=== PATIENT | female | born 1990 | race Caucasian/White ===

== ENCOUNTER 2018-08-21 16:37 | Emergency (ER) | payer OTHER, SELFPAY ==
[2018-08-21 16:43] VITALS: BP 101/68; PULSE 89; RESP 16; TEMP 37.1; O2SAT 100; BMI 20.2
--- NOTE | 2018-08-21 17:01 | DI.US.S_ITS ---
PROCEDURE: US OB LIMITED INDICATIONS: VAGINAL BLEEDING OUTSIDE/PRIOR DATING DATA: Last menstrual period (LMP): 6.29.18. LMP-based estimated date of delivery (RACHEL): 4.5.19. TECHNIQUE: Real-time scanning was performed of the fetus, with image documentation. Endovaginal scanning: Not performed COMPARISON: None. FINDINGS: A single living intrauterine gestation is present, with a heart rate of 152 beats per minute. presentation is mobile. Placentation is anterior with no evidence of previa. No evidence of placental abruption. Cervix maternal cervical length is 44 mm, which is normal. . IMPRESSION: 1. No evidence of placental abruption. 2. Single living intrauterine gestation. Dictated by: Brian Joseph M.D. on 08/21/2018 at 17:57 Approved by: Brian Joseph M.D. on 08/21/2018 at 17:58
[2018-08-21 17:24] LABS: Bacteria Urine None Seen; RBC Urine None Seen (0-5/HPF)
[2018-08-21 17:25] LABS: Appearance Urine UA CLEAR; Bilirubin Urine UA NEGATIVE (NEGATIVE); Color Urine UA YELLOW; Glucose Urine UA NEGATIVE (Normal); Ketones Urine UA TRACE (NEGATIVE); Leukocyte Esterase Urine UA NEGATIVE (NEGATIVE); Nitrite Urine UA NEGATIVE (Negative); Occult Blood Urine UA TRACE-LYSED (Negative); Protein Urine UA NEGATIVE (Negative); Specific Gravity Urine UA <=1.005 (1.000-1.035); Urobilinogen Urine UA 0.2 E.U./dL (0.2)
[2018-08-21 17:25] LABS: Add Manual Diff / Slide Review NO; Basophils Percent Auto 0.5 % (0-2); Eosinophils Percent Auto 0.4 % (2-4); Hematocrit 39.6 % (36-46); Hemoglobin 13.5 g/dL (12.0-16.0); Lymphocytes Percent Auto 16.8 % (25-40); Mean Corpuscular HGB Conc 34.1 % (30-36); Mean Corpuscular Hemoglobin 31.5 PG (26-34); Mean Corpuscular Volume 92.4 fL (80-100); Monocytes Percent Auto 5.9 % (3-14); Neutrophils Absolute Auto 5800 /uL (3000-5900); Neutrophils Percent Auto 76.4 % (50-75); Platelet Count 177 X10^3/uL (150-400); Red Blood Cell Count 4.29 X10^6/uL (4.0-5.2); Red Cell Distribution Width 12.8 % (11.6-14.8); White Blood Cell Count 7.6 X10^3/uL (4.5-11.0)
--- NOTE | 2018-08-21 17:28 | ED_ITS ---
HPI - <GINA Hyde-BC - Last Filed: 08/21/18 18:50> General Chief complaint: Vaginal Bleeding Stated complaint: 15wks , cramping Time Seen by Provider: 08/21/18 16:53 Source: patient and family Mode of arrival: ambulatory Limitations: no limitations History of Present Illness HPI Narrative: Patient is a 15 week female who presents with chief complaint of vaginal bleeding earlier today. States that she had an episode of bleeding that filled her underwear but has had no did since. She denies any abdominal pain, cramping, contractions sensations dysuria urgency or frequency. She states that she saw her nurse assistant program manager on Wednesday and everything was normal. She states she felt movement of the baby yesterday. Related Data Home Medications Medication Instructions Recorded Confirmed Fish Oil #0 08/06/16 VIT#96/FERROUS FUM/FA #0 08/06/16 ( Vitamin) cholecalciferol (vitamin D3) #0 08/06/16 [Vitamin D3] Allergies Allergy/AdvReac Type Severity Reaction Status Date / Time No Known Drug Allergies Allergy Verified 08/21/18 16:46 Review of Systems <CARLOS HdyeBC - Last Filed: 08/21/18 18:50> Review of Systems All systems reviewed & are unremarkable except as noted in HPI and below Constitutional Denies chills, Denies fever(s), Denies lethargy and Denies weakness Eyes Denies change in vision, Denies eye discharge, Denies irritation and Denies loss of vision ENT Ears, Nose, Mouth, and Throat: Denies change in voice, Denies neck pain and Denies sore throat Cardiovascular Denies chest pain, Denies irregular heart rhythm, Denies lightheadedness, Denies palpitations, Denies dyspnea, Denies dyspnea on exertion and Denies orthopnea Respiratory Denies cough, Denies dyspnea, Denies dyspnea on exertion and Denies wheezing Gastrointestinal Gastrointestinal: Denies abdominal pain, Denies change in bowel habits, Denies diarrhea, Denies nausea and Denies vomiting Genitourinary Reports abnormal vaginal bleeding, Denies vaginal dryness, Denies vaginal odor and Denies vaginal pruritus Musculoskeletal Denies neck pain Integumentary/Breasts Denies pruritus, Denies erythema, Denies rash and Denies wounds Neurologic Denies confusion, Denies loss of vision and Denies weakness Psychiatric Denies anxiety, Denies confusion, Denies depression, Denies homicidal ideation and Denies suicidal ideation Endocrine Denies palpitations Hematologic/Lymphatic Denies easy bruising Allergic/Immunologic Denies wheezing Exam <Fara AbbasiFATOUP-BC - Last Filed: 08/21/18 18:50> Initial Vital Signs Initial Vital Signs: Vital Signs Temperature 98.7 F 08/21/18 16:43 Pulse Rate 89 08/21/18 16:43 Respiratory Rate 16 08/21/18 16:43 Blood Pressure 101/68 08/21/18 16:43 Pulse Oximetry 100 08/21/18 16:43 Const General: cooperative and well developed Nutritional Appearance: well nourished Orientation: alert, awake, oriented x3 and not confused HENMT Head: normocephalic and atraumatic Ears: external ears normal and TM's normal bilaterally Nose: external nose normal and No nasal discharge Face and sinus: sinuses nontender, face symmetric, no sinus tenderness and No dry mucous membranes Mouth: oral mucosae normal and moist mucous membranes Teeth and gingiva: dentition normal Throat: tonsils normal and uvula midline Eyes General: appearance normal, both eyes and all related structures Eyelids: eyelids normal Conjunctivae: conjunctivae normal Sclera: sclerae normal Pupils: PERRL EOM: EOM intact bilaterally Neck Neck: normal visual inspection, trachea midline, No lymphadenopathy, No midline deformity and No JVD Lymphatic: No lymphedema Chest Chest: normal inspection of the chest Resp Effort & Inspection: normal respiratory effort, able to speak in complete sentences, no respiratory distress and no use of accessory muscles Auscultation: clear to auscultation bilaterally, no rales, no rhonchi and no wheezes Cardio Rate: regular rate Rhythm: regular rhythm Heart Sounds: no click, no gallops, no murmurs and no rubs Pulses: normal peripheral pulses GI Inspection: non-distended Palpation: soft, no hepatosplenomegaly, No guarding, No pulsatile mass and No tender Auscultation: normal bowel sounds Back/Spine/Pelvis Back: No CVA tenderness Cervical Spine: cervical ROM normal and No pain with cervical ROM Thoracic/Lumbar Spine: thoracic and lumbar spine normal to inspection Skin General: no rashes or lesions noted, No jaundice and No petechiae Neuro General: alert, oriented x3, gait normal and no focal motor deficits Speech: speech normal Extrem General: full ROM, no clubbing, cyanosis or edema, no pedal edema and no calf tenderness Psych Appearance: well kempt Mental Status: mental status grossly normal Attitude: cooperative Thought Content: normal and suicidality Judgment: judgment good <Kimo Mistry DO - Last Filed: 08/25/18 05:50> Initial Vital Signs Initial Vital Signs: Vital Signs Temperature 98.7 F 08/21/18 16:43 Pulse Rate 89 08/21/18 16:43 Respiratory Rate 16 08/21/18 16:43 Blood Pressure 101/68 08/21/18 16:43 Pulse Oximetry 100 08/21/18 16:43 Course <RUDDY Hyde - Last Filed: 08/21/18 18:50> Orders Ordered: ED Orders 08/21/18 17:01 US OB limited Stat 08/21/18 17:10 ABO RH Type Stat Complete Blood Count AUTO DIFF Stat HCG Quantitative Stat 08/21/18 17:20 Urinalysis and Microscopic Stat Vital Signs - 8 hr 08/21/18 16:43 08/21/18 18:35 Temperature 98.7 F Pulse Rate 89 88 Respiratory Rate 16 100 H Blood Pressure 101/68 96/55 L Pulse Oximetry 100 <Kimo Mistry DO - Last Filed: 08/25/18 05:50> Orders Ordered: ED Orders 08/21/18 17:01 US OB limited Stat 08/21/18 17:10 ABO RH Type Stat Complete Blood Count AUTO DIFF Stat HCG Quantitative Stat 08/21/18 17:20 Urinalysis and Microscopic Stat Vital Signs - 8 hr 08/21/18 16:43 08/21/18 18:35 Temperature 98.7 F Pulse Rate 89 88 Respiratory Rate 16 100 H Blood Pressure 101/68 96/55 L Pulse Oximetry 100 MDM - OB/Uterine Contractions <RUDDY Hyde - Last Filed: 08/21/18 18:50> Lab Data Result diagrams: 08/21/18 17:10 Lab Results 08/21/18 08/21/18 08/21/18 Range/Units 17:10 17:10 17:10 WBC 7.6 (4.5-11.0) X10^3/uL RBC 4.29 (4.0-5.2) X10^6/uL Hgb 13.5 (12.0-16.0) g/dL Hct 39.6 (36-46) % MCV 92.4 (80-100) fL MCH 31.5 (26-34) PG MCHC 34.1 (30-36) % RDW 12.8 (11.6-14.8) % Plt Count 177 (150-400) X10^3/uL Neut % (Auto) 76.4 H (50-75) % Lymph % (Auto) 16.8 L (25-40) % Jewell % (Auto) 5.9 (3-14) % Eos % (Auto) 0.4 L (2-4) % Baso % (Auto) 0.5 (0-2) % Neut # (Auto) 5800 (1737-2441) /uL HCG, Quant 29564 mIU/mL Urine Color Urine Appearance Urine pH (4.5-8.0) Ur Specific [place] (1.000-1.035) Urine Protein (Negative) Urine Glucose (UA) (Normal) g/dL Urine Ketones (NEGATIVE) Urine Occult Blood (Negative) Urine Nitrate (Negative) Urine Bilirubin (NEGATIVE) Urine Urobilinogen (0.2) E.U./dL Ur Leukocyte Esterase (NEGATIVE) Urine RBC (0-5/HPF) Urine WBC (0-5/HPF) Urine Bacteria (None) Ur Culture Indicated? Micro UA Comment Blood Type B Positive 08/21/18 Range/Units 17:20 WBC (4.5-11.0) X10^3/uL RBC (4.0-5.2) X10^6/uL Hgb (12.0-16.0) g/dL Hct (36-46) % MCV (80-100) fL MCH (26-34) PG MCHC (30-36) % RDW (11.6-14.8) % Plt Count (150-400) X10^3/uL Neut % (Auto) (50-75) % Lymph % (Auto) (25-40) % Jewell % (Auto) (3-14) % Eos % (Auto) (2-4) % Baso % (Auto) (0-2) % Neut # (Auto) (2304-1187) /uL HCG, Quant mIU/mL Urine Color Yellow Urine Appearance Clear Urine pH 7.0 (4.5-8.0) Ur Specific [place] <=1.005 (1.000-1.035) Urine Protein Negative (Negative) Urine Glucose (UA) Negative (Normal) g/dL Urine Ketones Trace H (NEGATIVE) Urine Occult Blood Trace-lysed (Negative) Urine Nitrate Negative (Negative) Urine Bilirubin Negative (NEGATIVE) Urine Urobilinogen 0.2 (0.2) E.U./dL Ur Leukocyte Esterase Negative (NEGATIVE) Urine RBC None seen (0-5/HPF) Urine WBC 0-1/hpf (0-5/HPF) Urine Bacteria None seen (None) Ur Culture Indicated? Cult not indicated Micro UA Comment Microscopic normal Blood Type Imaging Data US - abdomen: Radiologist's impression: [address] [id number] Ultrasound Report Signed Patient: Nidia Abad JMR#: [id number] : 1990Acct:[id number] Age/Sex: 27 / FDate of Service: 08/21/18 Loc: ED Accession Number: [id number] Procedure: US OB limited Ordering Provider: Fara Abbasi PROCEDURE: US OB LIMITED INDICATIONS: VAGINAL BLEEDING OUTSIDE/PRIOR DATING DATA: Last menstrual period (LMP): 6.29.18. LMP-based estimated date of delivery (RACHEL): 4.5.19. TECHNIQUE: Real-time scanning was performed of the fetus, with image documentation. Endovaginal scanning: Not performed COMPARISON: None. FINDINGS: A single living intrauterine gestation is present, with a heart rate of 152 beats per minute. presentation is mobile. Placentation is anterior with no evidence of previa. No evidence of placental abruption. Cervix maternal cervical length is 44 mm, which is normal. . IMPRESSION: 1. No evidence of placental abruption. 2. Single living intrauterine gestation. Dictated by: Brian Joseph M.D. on 08/21/2018 at 17:57 Approved by: Brian Joseph M.D. on 08/21/2018 at 17:58 [facility] Narrative Medical decision making narrative: Patient presents with chief complaint of vaginal bleeding earlier today. She denies any recurrence of vaginal bleeding since earlier today. She denies STI risk. She is 15 weeks . She had a normal CBC, was Rh positive and a normal ultrasound. She had a normal visit with her assistant program manager on Wednesday. I discussed at length follow up with her OB assistant program manager as well as coming emergency department any acute concerns. I suggested rest, pushing fluids and calling her assistant program manager door. She had no questions or concerns upon discharge. <Kimo Messinaan, DO - Last Filed: 08/25/18 05:50> Lab Data Lab Results 08/21/18 08/21/18 08/21/18 Range/Units 17:10 17:10 17:10 WBC 7.6 (4.5-11.0) X10^3/uL RBC 4.29 (4.0-5.2) X10^6/uL Hgb 13.5 (12.0-16.0) g/dL Hct 39.6 (36-46) % MCV 92.4 (80-100) fL MCH 31.5 (26-34) PG MCHC 34.1 (30-36) % RDW 12.8 (11.6-14.8) % Plt Count 177 (150-400) X10^3/uL Neut % (Auto) 76.4 H (50-75) % Lymph % (Auto) 16.8 L (25-40) % Jewell % (Auto) 5.9 (3-14) % Eos % (Auto) 0.4 L (2-4) % Baso % (Auto) 0.5 (0-2) % Neut # (Auto) 5800 (8854-6223) /uL HCG, Quant 33133 mIU/mL Urine Color Urine Appearance Urine pH (4.5-8.0) Ur Specific [place] (1.000-1.035) Urine Protein (Negative) Urine Glucose (UA) (Normal) g/dL Urine Ketones (NEGATIVE) Urine Occult Blood (Negative) Urine Nitrate (Negative) Urine Bilirubin (NEGATIVE) Urine Urobilinogen (0.2) E.U./dL Ur Leukocyte Esterase (NEGATIVE) Urine RBC (0-5/HPF) Urine WBC (0-5/HPF) Urine Bacteria (None) Ur Culture Indicated? Micro UA Comment Blood Type B Positive 08/21/18 Range/Units 17:20 WBC (4.5-11.0) X10^3/uL RBC (4.0-5.2) X10^6/uL Hgb (12.0-16.0) g/dL Hct (36-46) % MCV (80-100) fL MCH (26-34) PG MCHC (30-36) % RDW (11.6-14.8) % Plt Count (150-400) X10^3/uL Neut % (Auto) (50-75) % Lymph % (Auto) (25-40) % Jewell % (Auto) (3-14) % Eos % (Auto) (2-4) % Baso % (Auto) (0-2) % Neut # (Auto) (0770-3019) /uL HCG, Quant mIU/mL Urine Color Yellow Urine Appearance Clear Urine pH 7.0 (4.5-8.0) Ur Specific [place] <=1.005 (1.000-1.035) Urine Protein Negative (Negative) Urine Glucose (UA) Negative (Normal) g/dL Urine Ketones Trace H (NEGATIVE) Urine Occult Blood Trace-lysed (Negative) Urine Nitrate Negative (Negative) Urine Bilirubin Negative (NEGATIVE) Urine Urobilinogen 0.2 (0.2) E.U./dL Ur Leukocyte Esterase Negative (NEGATIVE) Urine RBC None seen (0-5/HPF) Urine WBC 0-1/hpf (0-5/HPF) Urine Bacteria None seen (None) Ur Culture Indicated? Cult not indicated Micro UA Comment Microscopic normal Blood Type Discharge Plan Departure Patient Disposition: Home Clinical Impression: Vaginal bleeding during Discharge Date/Time: 08/21/18 18:36 Interventions: ED Discharge Assessment Last Done: 08/21/18 18:35 Instructions: DI for Vaginal Bleeding During Activity Restrictions/Additional Instructions: Your lab work and ultrasound came back while today. Please follow-up with your assistant program manager and call them tomorrow. Please push fluids and rest. You will need to have your lab work repeated. Please feel free to come back to the emergency department for any acute concerns including severe vaginal bleeding or abdominal pain. Prescriptions: No Action cholecalciferol (vitamin D3) [Vitamin D3] 400 UNIT capsule Qty: 0 RF: 0 Fish Oil Qty: 0 RF: 0 VIT#96/FERROUS FUM/FA ( Vitamin) Qty: 0 RF: 0 Referrals: Kamran Diaz MD [Primary Care Provider] - <Kimo [place], DO - Last Filed: 08/25/18 05:50> Cosign ED Attending Mirandaature Attestation: I was immediately available in the department for consultation. Documentation has been reviewed. I agree with assessment and plan.
[2018-08-21 17:38] LABS: Culture Indicated Urine Cult Not Indicated; Urine Comments Microscopic Normal; WBC Urine 0-1/HPF (0-5/HPF)
[2018-08-21 18:17] LABS: HCG Quantitative /Beta subunit 39755 mIU/mL
[2018-08-21 18:35] VITALS: BP 96/55; PULSE 88; RESP 100
== END 2018-08-21 18:36 | disposition home or self-care (01) ==
PROVIDERS: Emergency Provider Nurse Practitioner Family; PCP Family Medicine
DX: O46.91 Antepartum hemorrhage, unspecified, first trimester (principal); Z3A.15 15 weeks gestation of pregnancy
CPT/HCPCS: 36415; 76815; 81001; 84702; 85025; 86900; 86901; 99282; 99284

== ENCOUNTER → 2021-09-05 13:10 | Outpatient (CLI) | payer OTHER, SELFPAY ==
--- NOTE | 2021-09-05 13:11 | DI.US.S_ITS ---
LIMITED ULTRASOUND OF LEFT BREAST AND AXILLA: 09/05/2021 CLINICAL: Palpable left breast lump. Comparison is made to exam dated: 09/05/2021 [facility]. Color flow and real-time ultrasound of the left breast 4 o'clock, and axilla regions were performed. Gutiérrez scale images of the real-time examination were reviewed. There is a 1.1 cm x 0.9 cm x 0.5 cm oval cyst in the left breast at 4 o'clock anterior depth 1 cm from the nipple and 0.2 cm from the skin. This oval cyst is of mixed echogenicity with a well-defined boundary and internal echoes. This correlates as palpated and with mammography findings. Color flow imaging demonstrates that there is an adjacent vascularity. No significant abnormalities were seen sonographically in the left axilla. IMPRESSION: PROBABLY BENIGN The 1.1 cm oval cyst in the left breast resembles a sebaceous cyst and is probably benign. A follow-up left ultrasound in 6 months is recommended to demonstrate stability. Exam findings were conveyed to the patient. Patient is advised to monitor for significant change. Clinical follow-up as needed. This exam was interpreted at Station ID: [id number]. Electronically Signed By: Marvin Field M.D. slc/:09/05/2021 14:51:44 letter sent: Followup Recommended Ultrasound BI-RADS: 3 Probably benign
--- NOTE | 2021-09-05 13:11 | DI.MG.S_ITS ---
BILATERAL DIGITAL DIAGNOSTIC MAMMOGRAM 3D/2D: 09/05/2021 CLINICAL: Left breast lump. Baseline exam. Baseline mammogram. No prior exams were available for comparison. The tissue of both breasts is extremely dense, which lowers the sensitivity of mammography. There is a low density focal asymmetry with an indistinct margin in the left breast at 5 o'clock anterior depth. No other significant masses, calcifications, or other findings are seen in either breast. IMPRESSION: INCOMPLETE: NEEDS ADDITIONAL IMAGING EVALUATION The low density focal asymmetry in the left breast in the region of the palpable abnormality is indeterminate. A targeted ultrasound is recommended and will immediately follow. This exam was interpreted at Station ID: [id number]. NOTE: For mammograms, a report in lay terms will be sent to the patient. Approximately 15% of breast malignancies will not be visualized mammographically. In the management of a palpable breast mass, a negative mammogram must not discourage biopsy of a clinically suspicious lesion. Electronically Signed By: Marvin Field M.D. slc/:09/05/2021 14:01:05 ACR BI-RADS Category 0: Incomplete [id number]
== END ==
PROVIDERS: Referring Provider Obstetrics & Gynecology; Visit Provider Obstetrics & Gynecology
DX: N63.20 Unspecified lump in the left breast, unspecified quadrant (principal); N60.02 Solitary cyst of left breast
CPT/HCPCS: 76642; 77066; G0279

== ENCOUNTER → 2021-12-16 13:28 | Outpatient (CLI) | payer OTHER, SELFPAY ==
[2021-12-16 18:43] LABS: Add Manual Diff / Slide Review NO; Basophils Absolute Auto 0 /uL (0-100); Basophils Percent Auto 0.8 % (0-2); Eosinophils Absolute Auto 100 /uL (0-450); Eosinophils Percent Auto 1.6 % (2-4); Hematocrit 39.4 % (36-46); Hemoglobin 13.5 g/dL (12.0-16.0); Lymphocytes Absolute Auto 1400 /uL (1100-4500); Lymphocytes Percent Auto 31.3 % (25-40); Mean Corpuscular HGB Conc 34.3 % (30-36); Mean Corpuscular Hemoglobin 31.5 PG (26-34); Mean Corpuscular Volume 91.9 fL (80-100); Monocytes Absolute Auto 400 /uL (0-900); Monocytes Percent Auto 9.2 % (3-14); Neutrophils Absolute Auto 2500 /uL (1500-7000); Neutrophils Percent Auto 57.1 % (50-75); Platelet Count 206 X10^3/uL (150-400); Red Blood Cell Count 4.29 X10^6/uL (4.0-5.2); Red Cell Distribution Width 12.5 % (11.6-14.8); White Blood Cell Count 4.3 X10^3/uL (4.5-11.0)
[2021-12-16 19:16] LABS: Thyroid Stimulating Hormone 0.735 uIU/mL (0.47-4.68)
[2021-12-16 19:25] LABS: Rubella Antibody IgG 24.4 IU/mL (>15)
[2021-12-17 08:14] LABS: Rubeola Measles IgG > 300.0 AU/mL (Immune >16.4); Varicella IgG Antibody 771 index (Immune >165)
[2021-12-18 12:41] LABS: Mumps Virus IgG Antibody 18.9 AU/mL (Immune >10.9)
== END ==
PROVIDERS: PCP Obstetrics & Gynecology; Visit Provider Obstetrics & Gynecology
DX: Z31.69 Encounter for other general counseling and advice on procreation (principal)
CPT/HCPCS: 84443; 85025; 86735; 86762; 86765; 86787

== ENCOUNTER 2022-01-13 02:30 | Emergency (ER) | payer OTHER, SELFPAY ==
[2022-01-13 02:37] VITALS: BP 108/55; PULSE 87; RESP 16; TEMP 36.4; O2SAT 100; BMI 21.6
--- NOTE | 2022-01-13 02:46 | DI.US.S_ITS ---
PROCEDURE: US PELVIC COMPLETE INDICATIONS: RIGHT PELVIC PAIN TECHNIQUE: Real-time scanning was performed of the pelvic organs, with image documentation. Additional endovaginal scanning was necessary due to incomplete visualization of the adnexal and endometrial structures by transabdominal scanning. COMPARISON: [facility], US, US PELVIC COMPLETE, 11/21/2021, 14:11. FINDINGS: Uterus: Uterus is anteverted and normal in size at 7.8 x 4.5 x 5.5 cm. The myometrium is homogeneous. The endometrium measures 10 mm combined thickness. No focal intrauterine abnormalities. Ovaries: The right ovary measures 4.8 x 3.0 x 3.1 cm. The left ovary measures 3.5 x 2.0 x 1.6 cm. The ovaries have a normal sonographic appearance. Incidental note of a 2.3 x 2.5 x 3.8 cm simple right ovarian cyst. No adnexal masses are seen. Other: No pathologic free abdominal or pelvic fluid. Small amount of pelvic free fluid near the posterior cul-de-sac likely physiologic. IMPRESSION: Pelvis without acute sonographic abnormalities. Incidental note of a 3.5 cm simple right ovarian cyst. No follow-up imaging required given size and patient's age. No significant discrepancy with the thermodynamics engineer radiology preliminary report. We strive to produce accurate, complete, and clear reports of imaging services. To assist us in improving patient care, this report was composed using standard report templates and voice recognition software. Therefore, it may contain abnormal punctuation, insertions and/or omissions. Occasional wrong-word or sound-alike substitutions may occur. Though we review the report and make efforts to correct it, we do recommend that the report be read carefully in proper context to recognize any text inaccuracies. Dictated by: Jim Riggs M.D. on 01/13/2022 at 7:42 Approved by: Jim Riggs M.D. on 01/13/2022 at 7:47
--- NOTE | 2022-01-13 02:47 | ED_ITS ---
HPI - General Adult General Chief complaint: Abdominal Pain Stated complaint: OVARIAN CYST Time Seen by Provider: 01/13/22 02:36 Source: patient Mode of arrival: Ambulatory History of Present Illness HPI narrative: Patient is a 31-year-old female who 6 weeks ago had an ultrasound performed at her kiss mixer office. Was diagnosed with ovarian cyst has a follow-up with her kiss mixer provider on Wednesday this week. This evening her symptoms seem to worsen. She take some ibuprofen in the improve but then the symptoms returned. She was instructed that if her symptoms worsen that she needed to come to the emergency department for concerns of ovarian torsion. Related Data Home Medications Medication Instructions Recorded Confirmed cholecalciferol (vitamin D3) 10 #0 08/06/16 11/21/21 mcg (400 unit) capsule (Vitamin D3) Allergies Allergy/AdvReac Type Severity Reaction Status Date / Time No Known Drug Allergies Allergy Verified 11/21/21 13:54 Review of Systems Gastrointestinal Gastrointestinal: Reports abdominal pain Genitourinary Genitourinary: Denies dysuria and Denies vaginal discharge Musculoskeletal Musculoskeletal: Reports system reviewed and no additional complaints, except as documented Hematologic/Lymphatic On Anticoagulants: No Patient History Medical History Vaginal delivery Family History (Updated 03/13/21 @ 21:19 by Joan Crawford) Grandmother Cancer Social History Smoking Status: Never smoker Smoking Status: Never smoker Substance Use Type: does not use Exam Initial Vital Signs Initial Vital Signs: Vital Signs Temperature 97.6 F 01/13/22 02:37 Pulse Rate 87 01/13/22 02:37 Respiratory Rate 16 01/13/22 02:37 Blood Pressure 108/55 L 01/13/22 02:37 Pulse Oximetry 100 01/13/22 02:37 HENMT Head: normal to inspection and normocephalic Resp Effort & Inspection: normal respiratory effort Cardio Rate: regular rate GI Palpation: soft, No firm and tender (Right adnexa/right lower quadrant) Skin General: no rashes or lesions noted Course Orders Ordered: ED Orders 01/13/22 02:46 US pelvic complete Stat Vital Signs Vital signs: Vital Signs - 8 hr 01/13/22 02:37 Temperature 97.6 F Pulse Rate 87 Respiratory Rate 16 Blood Pressure 108/55 L Pulse Oximetry 100 Medical Decision Making Lab Data Labs: Point of Care Testing Test Results Negative Urine Dip Bedside Urine Glucose Negative Bedside Urine Bilirubin - Negative Bedside Urine Ketone - Negative Urine Specific [place] 1.015 Bedside Urine Occult Blood - Negative Bedside Urine pH 6.0 Bedside Urine Protein - Negative Bedside Urine Urobilinogen - Negative Bedside Urine Nitrite - Negative Bedside Urine Leukocytes - Negative Esterase Point of care testing: Point of Care Testing Test Results Negative Urine Dip Bedside Urine Glucose Negative Bedside Urine Bilirubin - Negative Bedside Urine Ketone - Negative Urine Specific [place] 1.015 Bedside Urine Occult Blood - Negative Bedside Urine pH 6.0 Bedside Urine Protein - Negative Bedside Urine Urobilinogen - Negative Bedside Urine Nitrite - Negative Bedside Urine Leukocytes - Negative Esterase Imaging Data US - PROVIDER NETWORK MANAGER: Radiologist's Impression: Simple cyst within the right ovary measuring 2.3 x 2.5 x 3.8 cm. MDM Narrative Medical decision making narrative: According to the kiss mixer note from 6 weeks ago the patient had a left-sided ovarian cyst that was moderately large. Patient states that she has always had pain on her right ovary. Unsure whether not this was a mistake in the note. Ultrasound today shows a simple right-sided ovarian cyst. No signs of ovarian torsion. Will have patient continue to take nonsteroidal anti-inflammatories for her symptoms. She has an appointment with her kiss mixer provide later this week can we will have her keep that appointment. I feel that we can hold on a CT scan based on her presentation today. I feel that other intra-abdominal pathology such as appendicitis is less likely given her presentation. She was given return precautions. She expressed understanding and agreement. Discharge Plan Departure Patient Disposition: Home Clinical Impression: Ovarian cyst Instructions: DI for Ovarian Cyst Activity Restrictions/Additional Instructions: Recommend that you continue with your ibuprofen/Motrin for any discomfort. You could also use heat over the area. Keep your appointment that you have with Dr. Betancourt the end of this week. She will be able to see the ultrasound that we performed today. Return to the emergency department for any new or worsening symptoms. Prescriptions: No Action cholecalciferol (vitamin D3) [Vitamin D3] 400 UNIT capsule Qty: 0 0RF Referrals: Cassy Fabian MD [Primary Care Provider] -
[2022-01-13 04:16] VITALS: BP 108/64; PULSE 72; RESP 16; O2SAT 100
== END 2022-01-13 04:17 | disposition home or self-care (01) ==
PROVIDERS: Emergency Provider Emergency Medicine; PCP Obstetrics & Gynecology
DX: N83.202 Unspecified ovarian cyst, left side (principal)
CPT/HCPCS: 76830; 76856; 81003; 81025; 99283

== ENCOUNTER → 2022-01-16 16:05 | Outpatient (CLI) | payer OTHER, SELFPAY ==
[2022-01-16 18:03] LABS: Cancer Antigen 125 12.1 U/mL (0-35)
[2022-01-18 10:07] LABS: Human Epididymis Prot 4 39.2 pmol/L (0.0-61.2)
== END ==
PROVIDERS: PCP Obstetrics & Gynecology; Referring Provider Obstetrics & Gynecology; Visit Provider Obstetrics & Gynecology
DX: N83.209 Unspecified ovarian cyst, unspecified side (principal)
CPT/HCPCS: 36415; 82378; 86304; 86305

== ENCOUNTER → 2022-04-14 13:15 | Outpatient (CLI) | payer OTHER, SELFPAY ==
--- NOTE | 2022-04-14 | DI.US.S_ITS ---
LIMITED ULTRASOUND OF LEFT BREAST: 04/14/2022 CLINICAL: 6 month follow-up of palpable lump. Comparison is made to exams dated: 04/14/2022 mammogram, 09/05/2021 ultrasound, and 09/05/2021 mammogram - [facility]. Color flow ultrasound of the left breast 4 o'clock region was performed. Gutiérrez scale images of the real-time examination were reviewed. There is a 0.9 cm x 0.8 cm x 0.5 cm oval cyst in the left breast at 4 o'clock anterior depth 1 cm from the nipple. This oval cyst is of mixed echogenicity with a well-defined boundary and internal echoes. This abnormality is not significantly changed and correlates with mammography findings. Color flow imaging demonstrates that there is an adjacent vascularity. IMPRESSION: PROBABLY BENIGN The 0.9 cm x 0.8 cm x 0.5 cm oval cyst in the left breast resembles a sebaceous cyst and is probably benign. A follow-up mammogram and an ultrasound in 6 months is recommended to demonstrate stability. This exam was interpreted at Station ID: [id number]. Electronically Signed By: Andrew wang/odilon:04/14/2022 14:49:41 copy to: FELIPA MARTIN letter sent: Followup Recommended Ultrasound BI-RADS: 3 Probably benign
--- NOTE | 2022-04-14 | DI.MG.S_ITS ---
UNILATERAL LEFT DIGITAL DIAGNOSTIC MAMMOGRAM 3D/2D: 04/14/2022 CLINICAL: Short term follow up. Comparison is made to exams dated: 09/05/2021 mammogram and 09/05/2021 ultrasound - [facility]. The tissue of left breast is extremely dense, which lowers the sensitivity of mammography. There is a low density focal asymmetry with an indistinct margin in the left breast at 5 o'clock anterior depth. This is not significantly changed. No other significant masses or calcifications are seen in the breast. IMPRESSION: INCOMPLETE: NEEDS ADDITIONAL IMAGING EVALUATION The low density focal asymmetry in the left breast is indeterminate. An ultrasound is recommended. This exam was interpreted at Station ID: [id number]. NOTE: For mammograms, a report in lay terms will be sent to the patient. Approximately 15% of breast malignancies will not be visualized mammographically. In the management of a palpable breast mass, a negative mammogram must not discourage biopsy of a clinically suspicious lesion. Electronically Signed By: Andrew wang/odilon:04/14/2022 14:47:21 copy to: FELIPA MARTIN ACR BI-RADS Category 0: Incomplete 3340F
== END ==
PROVIDERS: PCP Obstetrics & Gynecology; Referring Provider Obstetrics & Gynecology; Visit Provider Obstetrics & Gynecology
DX: N60.02 Solitary cyst of left breast (principal); R92.8 Other abnormal and inconclusive findings on diagnostic imaging of breast
CPT/HCPCS: 76642; 77065; G0279

== ENCOUNTER → 2023-01-08 15:06 | Outpatient (CLI) | payer OTHER, SELFPAY ==
--- NOTE | 2023-01-08 | DI.US.S_ITS ---
PROCEDURE: US PELVIC COMPLETE INDICATIONS: Pelvic and perineal pain TECHNIQUE: Real-time scanning was performed of the pelvic organs, with image documentation. Additional endovaginal scanning was necessary due to incomplete visualization of the adnexal and endometrial structures by transabdominal scanning. COMPARISON: [facility], US, US PELVIC COMPLETE, 01/16/2022, 16:01. FINDINGS: Uterus: Uterus is anteverted and normal in size at 8.1 x 4.2 x 4.6 cm. The myometrium is homogeneous. The endometrium measures 6 mm combined thickness. Mildly prominent uterine vessels. Ovaries: The right ovary measures 3.5 x 1.7 x 2.5 cm, with a calculated ovarian volume of 7.6 cc. The left ovary measures 3.0 x 1.7 x 3.1 cm, with a calculated ovarian volume of 8.0 cc. The ovaries have a normal sonographic appearance. Less than 12 follicles can be seen in each ovary. There is a 1.2 x 0.9 x 1.3 cm complex cyst in the left ovary. No suspicious adnexal masses are seen. Other: Small amount of pelvic free fluid noted in the cul-de-sac. IMPRESSION: 1. Pelvis without acute sonographic abnormalities. 2. A 1.3 cm complex left ovarian cyst. Findings may represent a hemorrhagic cyst with retracting clot, endometrioma, or possibly dermoid. Recommend follow-up pelvic ultrasound in 6-12 weeks to document stability versus resolution. We strive to produce accurate, complete, and clear reports of imaging services. To assist us in improving patient care, this report was composed using standard report templates and voice recognition software. Therefore, it may contain abnormal punctuation, insertions and/or omissions. Occasional wrong-word or sound-alike substitutions may occur. Though we review the report and make efforts to correct it, we do recommend that the report be read carefully in proper context to recognize any text inaccuracies. Dictated by: Jim Riggs M.D. on 01/08/2023 at 16:07 Approved by: Jim Riggs M.D. on 01/08/2023 at 16:12
== END ==
PROVIDERS: Referring Provider Advanced Practice Midwife; Visit Provider Advanced Practice Midwife
DX: N83.292 Other ovarian cyst, left side (principal); R10.2 Pelvic and perineal pain; Z80.41 Family history of malignant neoplasm of ovary
CPT/HCPCS: 76830; 76856; 93975

== ENCOUNTER → 2023-01-08 15:51 | Outpatient (CLI) | payer OTHER, SELFPAY ==
[2023-01-08 16:48] LABS: Hematocrit 40.8 % (36-46); Mean Corpuscular HGB Conc 34.3 % (30-36); Mean Corpuscular Hemoglobin 31.3 PG (26-34); Mean Corpuscular Volume 91.3 fL (80-100); Platelet Count 205 X10^3/uL (150-400); Red Blood Cell Count 4.47 X10^6/uL (4.0-5.2); Red Cell Distribution Width 12.4 % (11.6-14.8); White Blood Cell Count 5.4 X10^3/uL (4.5-11.0)
[2023-01-08 17:05] LABS: C-Reactive Protein Quant < 0.5 mg/dL (<1.0)
[2023-01-08 17:19] LABS: Prolactin 9.6 ng/mL (3.0-18.6)
[2023-01-08 17:34] LABS: Follicle Stimulating Hormone 8.36 mIU/mL; Free T4, Direct Thyroxine 1.33 ng/dL (0.78-2.19)
[2023-01-08 17:48] LABS: Thyroid Stimulating Hormone 1.01 uIU/mL (0.47-4.68)
[2023-01-12 13:37] LABS: Estriol <0.1 ng/mL (.)
[2023-01-18 14:37] LABS: Anti Mullerian Hormone 2.13 ng/mL (.)
== END ==
PROVIDERS: Referring Provider Advanced Practice Midwife; Visit Provider Advanced Practice Midwife
DX: N93.9 Abnormal uterine and vaginal bleeding, unspecified (principal); E03.9 Hypothyroidism, unspecified; N83.292 Other ovarian cyst, left side; R10.2 Pelvic and perineal pain; Z80.41 Family history of malignant neoplasm of ovary
CPT/HCPCS: 36415; 76830; 76856; 82397; 82677; 83001; 84146; 84439; 84443; 85027; 86140; 93975

== ENCOUNTER → 2023-01-19 12:07 | Outpatient (CLI) | payer OTHER, SELFPAY ==
--- NOTE | 2023-01-19 12:09 | DI.US.S_ITS ---
LIMITED ULTRASOUND OF LEFT BREAST AND AXILLA: 01/19/2023 CLINICAL: Patient returns today to evaluate a focal asymmetry in the left breast. Comparison is made to exams dated: 01/19/2023 mammogram, 04/14/2022 ultrasound, 04/14/2022 mammogram, 09/05/2021 ultrasound, and 09/05/2021 mammogram - [facility]. Color flow ultrasound of the left breast 4 o'clock, and axilla regions was performed. Gutiérrez scale images of the real-time examination were reviewed. There is a 0.9 cm x 0.8 cm x 0.5 cm oval cyst in the left breast at 4 o'clock anterior depth 1 cm from the nipple. This oval cyst is of mixed echogenicity with a well-defined boundary and internal echoes. This abnormality is not significantly changed and correlates with mammography findings. Color flow imaging demonstrates that there is an adjacent vascularity. No significant abnormalities were seen sonographically in the left axilla. IMPRESSION: PROBABLY BENIGN The 0.9 cm x 0.8 cm x 0.5 cm oval cyst in the left breast resembles a sebaceous cyst and is probably benign. A follow-up mammogram and an ultrasound in 6 months is recommended to demonstrate stability. This exam was interpreted at Station ID: [id number]. Electronically Signed By: Andrew wang/odilon:01/19/2023 13:30:01 copy to: FELIPA MARTIN letter sent: Followup Recommended Ultrasound BI-RADS: 3 Probably benign
--- NOTE | 2023-01-19 12:09 | DI.MG.S_ITS ---
UNILATERAL LEFT DIGITAL DIAGNOSTIC MAMMOGRAM 3D/2D: 01/19/2023 CLINICAL: Short term follow up for the left breast. Comparison is made to exams dated: 09/05/2021 ultrasound, 04/14/2022 mammogram, 04/14/2022 ultrasound, and 09/05/2021 mammogram - [facility]. The left breast is extremely dense, which lowers the sensitivity of mammography (category d />75% glandular tissue). There is a low density focal asymmetry with an indistinct margin in the left breast at 5 o'clock anterior depth. This is not significantly changed. No other significant masses or calcifications are seen in the breast. IMPRESSION: INCOMPLETE: NEEDS ADDITIONAL IMAGING EVALUATION The low density focal asymmetry in the left breast is indeterminate. An ultrasound is recommended. Based on Tyrer-Cuzick model (a risk assessment model), the patient's lifetime risk is 21.3% and her 10 year risk is 1.1%. If a patient has an elevated risk, a more comprehensive evaluation should be considered and/or a referral to a genetic counselor. The [place] [employer], [place] [employer], and NCCN Guidelines advise the consideration of Breast MRI as an adjunct to screening mammography in patients whose Lifetime risk to develop breast cancer is 20% or higher. This exam was interpreted at Station ID: [id number]. NOTE: For mammograms, a report in lay terms will be sent to the patient. Approximately 15% of breast malignancies will not be visualized mammographically. In the management of a palpable breast mass, a negative mammogram must not discourage biopsy of a clinically suspicious lesion. Electronically Signed By: Andrew wang/odilon:01/19/2023 13:28:31 copy to: FELIPA MARTIN [facility] BI-RADS Category 0: Incomplete 3340F
== END ==
PROVIDERS: Referring Provider Obstetrics & Gynecology; Visit Provider Obstetrics & Gynecology
DX: R92.8 Other abnormal and inconclusive findings on diagnostic imaging of breast; N60.02 Solitary cyst of left breast
CPT/HCPCS: 76642; 77065; G0279

== ENCOUNTER → 2023-03-09 08:47 | Outpatient (CLI) | payer OTHER, SELFPAY ==
--- NOTE | 2023-03-09 | DI.US.S_ITS ---
PROCEDURE: US PELVIC COMPLETE INDICATIONS: Pelvic and perineal pain TECHNIQUE: Real-time scanning was performed of the pelvic organs, with image documentation. Additional endovaginal scanning was necessary due to incomplete visualization of the adnexal and endometrial structures by transabdominal scanning. COMPARISON: [facility], US, US PELVIC COMPLETE, 01/08/2023, 15:26. FINDINGS: Uterus: 7.8 x 4 x 5.1 cm. Endometrium measures 4 mm. Uterus is anteverted and echotexture is homogeneous. Ovaries: Right ovary measures 15 cc. Left ovary measures 12 cc. A complex cyst is again seen in the left ovary measuring 1.2 x 1.1 cm, appearance is suggestive of a hemorrhagic cyst. There are less than 12 follicles per ovary. Other: Color and spectral flows are seen in the ovaries. IMPRESSION: No acute pelvic abnormality to explain pain. Both ovaries are mildly enlarged, but with less than 12 follicles per ovary. Suspected involuting/hemorrhagic cyst is seen on the left, likely physiologic in this age group. We strive to produce accurate, complete, and clear reports of imaging services. To assist us in improving patient care, this report was composed using standard report templates and voice recognition software. Therefore, it may contain abnormal punctuation, insertions and/or omissions. Occasional wrong-word or sound-alike substitutions may occur. Though we review the report and make efforts to correct it, we do recommend that the report be read carefully in proper context to recognize any text inaccuracies. Dictated by: Ammon Ricci M.D. on 03/09/2023 at 9:24 Approved by: Ammon Ricci M.D. on 03/09/2023 at 9:27
== END ==
PROVIDERS: Referring Provider Nurse Practitioner Obstetrics & Gynecology; Visit Provider Nurse Practitioner Obstetrics & Gynecology
DX: R10.2 Pelvic and perineal pain (principal); N83.292 Other ovarian cyst, left side
CPT/HCPCS: 76830; 76856; 93975

== ENCOUNTER 2023-05-20 08:44 | Day surgery (SDC) | payer OTHER, SELFPAY ==
[2023-05-14 08:45] VITALS: BMI 20.9
[2023-05-20 09:00] VITALS: BP 99/64; PULSE 93; RESP 16; TEMP 36.7; O2SAT 100; BMI 20.9
[2023-05-20] MEDS: LACTATED RINGERS 1,000 ML 42 ML IV (09:23)
--- NOTE | 2023-05-20 10:41 | PM.GYNHP.1 ---
History of Present Illness History of Present Illness Reason for admission: pelvic pain and other (Left ovarian complex cyst) Narrative: Nidia Abad is a 32 year old female 3 para 2 who presents for a diagnostic laparoscopy, resection of left ovarian cyst, possible removal of a right ovarian cyst, and possible fulguration of endometriosis. This is being done due to a persistent complex left ovarian cyst and pelvic pain. [facility] [place] Medical History Miscarriage (10/2022) Vaginal delivery Family History Grandmother Cancer Social History household members: spouse and children Smoking Status: Never smoker alcohol intake: current Meds Home Medications and Allergies Home Medications Medication Instructions Recorded Confirmed Type No Known Home Medications 07/15/22 05/20/23 History Allergies Allergy/AdvReac Type Severity Reaction Status Date / Time No Known Drug Allergies Allergy Verified 05/20/23 08:55 Exam Vital Signs (past 8 hours): - 05/20/23 09:00 Temperature 98.1 F Pulse Rate 93 H Respiratory Rate 16 Blood Pressure 99/64 Pulse Oximetry 100 Oxygen Delivery Method Room Air Oxygen Delivery Method Room Air Narrative Exam Narrative: HEENT: No thyromegaly, no anterior cervical or supraclavicular lymphadenopathy. Lungs:Clear to auscultation bilaterally, no wheezes. Cardiovascular: Regular rate and rhythm, no murmurs, rubs, or gallops. Abdomen: No scars. No hepatosplenomegaly. No masses palpable. External genitalia: Normal Vagina: Normal Cervix: Normal Bimanual exam: 6 Week size anteverted uterus. Mobile. Extremities: No edema Assessment & Plan Assessment & Plan narrative: Assessment: 32-year-old 3 para 2 with a persistent complex left ovarian cyst Right lower quadrant pain General pelvic pain Plan: Diagnostic laparoscopy with excision of left ovarian cyst, possible excision of a right ovarian cyst, possible fulguration of endometriosis. The risks, benefits, and alternatives to the procedure were explained to the patient. The risks including bleeding, infection, injury to the bowel, bladder, or ureters. She understands these risks and agrees to proceed. A full par Q was held and consent form was signed. Time Spent With Patient Time with patient: less than 30 minutes
--- NOTE | 2023-05-20 10:48 | P.OP_ITS ---
Operative Date/Time/Diagnoses Date of procedure: 05/20/23 Time of procedure: 11:47 Pre-op diagnosis: Persistent left ovarian cyst Right lower quadrant pain Generalized pelvic pain Post-op diagnosis: same Procedure & Clinicians Procedure: Procedures Operation Date: 05/20/23 10:15 Actual Procedure Side Surgeon p Laparoscopic Removal of Left Ovarian Cyst, poss. fulguration of endometriosis Cassy Fabian MD Indications: Persistent left ovarian complex cyst Right lower quadrant pain Generalized pelvic pain Surgeon: Cassy Fabian Anesthesia Type: General and Local Operative Notes Findings: 6 week size anteverted uterus Normal tubes and ovaries Normal liver and gallbladder Normal appendix Significant free fluid in the pelvis consistent with ruptured ovarian cyst Closure Type: primary Specimen(s): none Estimated blood loss (mL): 3 Blood products transfused: none Procedure in detail: After informed consent was obtained, the patient was taken to the operating room where she was placed in the dorsal supine position. After adequate general endotracheal anesthesia was achieved, she was placed in the dorsal lithotomy position, and prepped and draped in the usual sterile fashion. A time-out was performed. A bivalve speculum was placed into the vagina and the anterior lip of the cervix was grasped with a single-tooth tenaculum. The cervical os was sequentially dilated until the Zumi uterine manipulator could pass easily into the endometrial cavity. Single-tooth tenaculum was removed from the anterior lip of the cervix. The bivalve speculum was removed from the vagina. Attention was then turned to the abdomen where 6 cc of 0.5% Marcaine with epinephrine were injected in the umbilical fold. A 5 mm incision was made. The Veress needle was placed into the peritoneal cavity, and its placement confirmed by aspiration and drop test. The abdominal cavity was insufflated with 2.8 L of CO2. The Veress needle was removed, and a 5 mm trocar was placed without difficulty. A second incision was made 4 cm left of midline after 6 cc of 0.5% Marcaine with epinephrine were injected. This was a 5 mm incision. A second 5 mm trocar was placed under direct visualization. The uterus was lifted out of the pelvis the probe was used to identify both tubes and ovaries which were normal. There was a significant amount of free fluid in the pelvis. The gallbladder, liver, and appendix were visualized and were normal. There was no evidence of any endometriosis. Proximally 60 cc of free fluid was aspirated out of the pelvis. The instruments were removed from the abdomen. The CO2 was allowed to escape. The incisions were repaired with 4-0 Monocryl in a subcuticular fashion. Steri- Strips and Allevyn dressings were placed. The Zumi uterine manipulator was removed from the uterus. Sponge, lap, and instrument counts were correct x2. The patient tolerated the procedure well, and was taken to PACU in stable condition. Complications: none Post-operative Condition: stable Disposition: PACU Plan for aftercare: Home after recovery
--- NOTE | 2023-05-20 10:49 | PM.PREOP ---
Pre-operative Note COVID-19 Criteria for continued procedure: Non-surgical alternatives not available or appropriate per current SOC Interval Note History & Physical reviewed/Exam performed by Physician: Yes Changes to H&P: No H&P completed within 30 days and has changed as indicated here:: 05/20/23
[2023-05-20] MEDS: BUPIVACAINE 0.5% (PF) 30 ML, EPINEPHrine 0.15 MG INJ (11:22)
[2023-05-20] MEDS: SCOPOLAMINE 1 PATCH TOP (11:38)
--- NOTE | 2023-05-20 11:38 | SUR.OPER ---
Lithotomy on padded OR bed, head on pillow, arms tucked. Legs secured in padded yellow fins stirrups.
[2023-05-20 11:50] VITALS: BP 109/71; PULSE 99; RESP 14; TEMP 36.3; O2SAT 97
[2023-05-20 11:55] VITALS: BP 109/73; PULSE 87; RESP 15; O2SAT 97
[2023-05-20 12:00] VITALS: BP 98/65; PULSE 83; RESP 16; O2SAT 98
[2023-05-20 12:06] VITALS: BP 108/73; PULSE 85; RESP 12; O2SAT 99
[2023-05-20 12:13] VITALS: BP 108/72; PULSE 75; RESP 14; TEMP 36.5; O2SAT 100
[2023-05-20] MEDS: ACETAMINOPHEN 325 MG TABLET 650 MG PO (13:22)
== END 2023-05-20 13:23 | disposition home or self-care (01) ==
PROVIDERS: Referring Provider Obstetrics & Gynecology; Visit Provider Obstetrics & Gynecology
PROC: (CPT 58662; principal; 2023-05-20 10:15)
DX: N83.202 Unspecified ovarian cyst, left side (principal); N80.9 Endometriosis, unspecified; R10.2 Pelvic and perineal pain
CPT/HCPCS: 58662; 81025; J0171; J1100; J1170; J2250; J3010

== ENCOUNTER → 2023-06-10 14:23 | Outpatient (CLI) | payer OTHER, SELFPAY ==
--- NOTE | 2023-06-10 14:24 | DI.US.S_ITS ---
PROCEDURE: US ABDOMEN LIMITED INDICATIONS: R/O RIGHT INGUINAL HERNIA TECHNIQUE: Real-time focused scanning was performed of the inguinal region, with image documentation. COMPARISON: None. FINDINGS: No right or left inguinal hernia is seen. Bilateral inguinal lymph nodes are within normal limits. IMPRESSION: No inguinal hernia. Approved by: Andrew Azar M.D. on 06/10/2023 at 21:18
== END ==
PROVIDERS: Referring Provider Obstetrics & Gynecology; Visit Provider Obstetrics & Gynecology
DX: R10.31 Right lower quadrant pain (principal)
CPT/HCPCS: 76705

== ENCOUNTER → 2023-06-18 13:55 | Outpatient (CLI) | payer OTHER, SELFPAY ==
[2023-07-01 10:04] LABS: Chlamydia trachomatis NAA NEGATIVE; Neisseria gonorrhoeae NAA NEGATIVE
== END ==
PROVIDERS: PCP Family Medicine; Visit Provider Family Medicine
DX: R10.2 Pelvic and perineal pain (principal)
CPT/HCPCS: 87491; 87591

== ENCOUNTER → 2023-07-16 09:24 | Outpatient (CLI) | payer OTHER, SELFPAY ==
--- NOTE | 2023-07-16 09:25 | DI.MRI.S_ITS ---
PROCEDURE: MR PELVIS WO/W CON INDICATIONS: 3 yrs pelvic pain with recurrent cysts TECHNIQUE: Coronal HASTE, sagittal breath-hold T2 FSE; axial T1 FSE with and without fat saturation through the pelvis. Optional long- and short-axis uterine nonbreath-hold T2 FSE through the uterus. Sagittal or axial dynamic VIBE during administration of contrast. Post-contrast axial or coronal VIBE/2-D FLASH with fat saturation from the iliac crests to the symphysis. Optional diffusion weighted imaging and ADC may be performed. COMPARISON: [facility], , US PELVIC COMPLETE, 03/09/2023, 8:56. [facility], , US PELVIC COMPLETE, 06/03/2023, 14:41. FINDINGS: Image quality: Excellent. Uterus: Uterus is normal in size. Endometrium is normal in thickness. Junctional zone is normal in thickness at 12 mm or less. Adnexa: Both ovaries are normal in size, without suspicious cystic or solid lesions. Number of follicles on the left is at the upper limits of normal. There are no dominant adnexal or ovarian cysts. Urinary system: Bladder wall is normal in thickness. Distal ureters are non distended. Urethra appears normal in morphology. Nodes and vessels: There is asymmetric rapid enhancement of left-sided periuterine and ovarian veins which appear slightly more numerous/enlarged compared to the contralateral side. No pelvic or inguinal adenopathy by size criteria. Iliac vessels are normal in size. Bowel and peritoneum: No pathologic free pelvic fluid. Inferior colon and small bowel loops are normal in caliber. Soft tissues: No inguinal hernias. No findings of pelvic floor incompetence in the absence of provocation. Bones: Marrow demonstrates normal overall signal. IMPRESSION: 1. Asymmetrically prominent left-sided periuterine and adnexal vasculature raises the possibility of pelvic congestion syndrome although this appearance also may be physiologic. Correlation with pain characteristics is recommended. 2. Otherwise normal MRI of the pelvis. Dictated by: Genevieve Gonzalez M.D. on 07/16/2023 at 12:46 Approved by: Genevieve Gonzalez M.D. on 07/16/2023 at 12:58
== END ==
PROVIDERS: PCP Family Medicine; Referring Provider Family Medicine; Visit Provider Family Medicine
DX: R10.2 Pelvic and perineal pain (principal); N83.209 Unspecified ovarian cyst, unspecified side
CPT/HCPCS: 72197; A9579

== ENCOUNTER → 2023-08-10 08:46 | Outpatient (CLI) | payer OTHER, SELFPAY ==
--- NOTE | 2023-08-10 08:47 | DI.MG.S_ITS ---
BILATERAL DIGITAL DIAGNOSTIC MAMMOGRAM 3D/2D SHORT-TERM FOLLOW-UP: 08/10/2023 CLINICAL: Short term follow up of the left breast, due for bilateral imaging. Comparison is made to exams dated: 01/19/2023 mammogram, 04/14/2022 mammogram, and 09/05/2021 mammogram - [facility]. Both breasts are extremely dense, which lowers the sensitivity of mammography (category d />75% glandular tissue). There is a low density focal asymmetry in the left breast lower outer quadrant anterior depth. This is not significantly changed since 09/05/2021. No other significant masses, calcifications, or other findings are seen in either breast. IMPRESSION: INCOMPLETE: NEEDS ADDITIONAL IMAGING EVALUATION Left breast lower outer quadrant focal asymmetry, mammographically stable since 09/05/2021. Recommend further evaluation with targeted left breast ultrasound, which will immediately follow this exam. Based on Tyrer-Cuzick model (a risk assessment model), the patient's lifetime risk is 21.3% and her 10 year risk is 1.1%. If a patient has an elevated risk, a more comprehensive evaluation should be considered and/or a referral to a genetic counselor. The [place] [employer], [employer] [place] [employer], and NCCN Guidelines advise the consideration of Breast MRI as an adjunct to screening mammography in patients whose Lifetime risk to develop breast cancer is 20% or higher. This exam was interpreted at Station ID: [id number]. NOTE: For mammograms, a report in lay terms will be sent to the patient. Approximately 15% of breast malignancies will not be visualized mammographically. In the management of a palpable breast mass, a negative mammogram must not discourage biopsy of a clinically suspicious lesion. Electronically Signed By: Maryana Gregory M.D. esb/:08/10/2023 09:50:09 copy to: ADAN JHA BI-RADS Category 0: Incomplete 3340F
--- NOTE | 2023-08-10 08:47 | DI.US.S_ITS ---
LIMITED ULTRASOUND OF LEFT BREAST: 08/10/2023 CLINICAL: 6 month follow-up of cysts. Comparison is made to exams dated: 08/10/2023 mammogram, 01/19/2023 ultrasound, 01/19/2023 mammogram, 04/14/2022 ultrasound, 04/14/2022 mammogram, and 09/05/2021 ultrasound - [facility]. Color flow and real-time ultrasound of the left breast 4 o'clock region were performed. There is a 0.9 cm x 0.7 cm x 0.5 cm oval heterogenous mass with circumscribed margin in the left breast at 4 o'clock, 1 cm from the nipple. Previously the mass measured 0.9 x 0.8 x 0.5 cm on 01/19/2023. The finding corresponds to mammographic focal asymmetry. IMPRESSION: BENIGN Left breast 9 mm oval circumscribed mass, stable since 09/05/2021. Given stability of the finding for 2 years, this is consistent with a benign etiology. No mammographic or sonographic evidence of malignancy. Recommend annual screening mammograms starting at age 40. Findings and recommendations were conveyed to the patient during today's evaluation. This exam was interpreted at Station ID: [id number]. Electronically Signed By: Maryana wetzelb/:08/10/2023 09:57:41 copy to: ADAN BURDICK letter sent: Normal Exam Ultrasound BI-RADS: 2 Benign
== END ==
PROVIDERS: PCP Family Medicine; Referring Provider Obstetrics & Gynecology; Visit Provider Obstetrics & Gynecology
DX: R92.8 Other abnormal and inconclusive findings on diagnostic imaging of breast (principal); N63.23 Unspecified lump in the left breast, lower outer quadrant
CPT/HCPCS: 76642; 77066; G0279

== ENCOUNTER → 2023-09-09 10:53 | Outpatient (CLI) | payer OTHER, SELFPAY ==
--- NOTE | 2023-09-09 10:54 | DI.CT.S_ITS ---
PROCEDURE: CT ANGIO ABDOMEN PELVIS INDICATIONS: Pelvic congestion syndrome TECHNIQUE: After the administration of intravenous contrast, 2.5 mm thick sections acquired from the diaphragm to the symphysis. 10 mm maximum-intensity projection (MIP) reformats were then acquired. For radiation dose reduction, the following was used: automated exposure control. COMPARISON: None. FINDINGS: Image quality: Excellent. Vascular findings: This study is performed to evaluate the venous structures of the abdomen and pelvis. The right and left gonadal veins are both abnormally dilated, measuring 9 mm on the left and 8 mm on the right. They are refluxing vessels and give rise to bilateral paraovarian varicosities. Findings are supportive of a potential clinical diagnosis of pelvic venous congestion syndrome. The right gonadal vein is noted to drain directly into the inferior vena cava. Incidental note made of the presence of a prominent dilated inferior vena cava measuring 3.2 x 2.2 cm. Extravascular soft tissues: Lung bases are clear. Heart size is normal. Liver is normal in size and enhancement. Gallbladder is unremarkable. Biliary system is non dilated. Pancreas enhances normally. Spleen is normal in size and enhancement. No adrenal nodules. Kidneys are normal in size and enhancement, without hydronephrosis. Non opacified bowel loops are normal in wall thickness and caliber. No free fluid or air. No retroperitoneal or mesenteric adenopathy. No ventral hernias. No suspicious bony lesions. No vertebral body compression fractures. IMPRESSION: 1. Vascular findings are supportive of a potential clinical diagnosis of chronic pelvic venous congestion syndrome. 2. 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 This is of anatomical importance should bilateral gonadal vein embolization be attempted in this patient. Dictated by: Jorge Benz M.D. on 09/09/2023 at 13:06 Approved by: Jorge Benz M.D. on 09/09/2023 at 13:12
== END ==
PROVIDERS: PCP Family Medicine; Referring Provider Obstetrics & Gynecology; Visit Provider Obstetrics & Gynecology
DX: N94.89 Other specified conditions associated with female genital organs and menstrual cycle (principal); R10.2 Pelvic and perineal pain
CPT/HCPCS: 74174; Q9967

== ENCOUNTER → 2024-05-31 14:51 | Outpatient (CLI) | payer OTHER, SELFPAY ==
[2024-05-31 20:42] LABS: Troponin I < 0.012 ng/mL (0.01-0.034)
== END ==
PROVIDERS: PCP Family Medicine; Referring Provider Family Medicine; Visit Provider Family Medicine
DX: R07.89 Other chest pain (principal); N94.89 Other specified conditions associated with female genital organs and menstrual cycle
CPT/HCPCS: 84484

== ENCOUNTER → 2024-06-12 13:03 | Outpatient (CLI) | payer OTHER, SELFPAY ==
[2024-06-12 20:00] LABS: Add Manual Diff / Slide Review NO; Basophils Absolute Auto 0 /uL (0-100); Basophils Percent Auto 0.6 % (0-2); Eosinophils Absolute Auto 100 /uL (0-450); Eosinophils Percent Auto 1.1 % (2-4); Hematocrit 40.1 % (36-46); Hemoglobin 13.9 g/dL (12.0-16.0); Lymphocytes Absolute Auto 1500 /uL (1100-4500); Lymphocytes Percent Auto 25.8 % (25-40); Mean Corpuscular HGB Conc 34.6 % (30-36); Mean Corpuscular Volume 92.6 fL (80-100); Monocytes Absolute Auto 400 /uL (0-900); Monocytes Percent Auto 7.9 % (3-14); Neutrophils Absolute Auto 3600 /uL (1500-7000); Neutrophils Percent Auto 64.6 % (50-75); Platelet Count 200 X10^3/uL (150-400); Red Blood Cell Count 4.33 X10^6/uL (4.0-5.2); Red Cell Distribution Width 12.8 % (11.6-14.8); White Blood Cell Count 5.7 X10^3/uL (4.5-11.0)
[2024-06-12 20:09] LABS: BUN Creatinine Ratio 20.4 (6-22); Blood Urea Nitrogen 11 mg/dL (7-17); Calcium 9.2 mg/dL (8.4-10.2); Carbon Dioxide 26 mmol/L (22-32); Chloride 106 mmol/L (98-107); Estimated Glomerular Filt Rate > 60 mL/min (>60); Glucose 89 mg/dL (70-100); HEMOLYSIS < 15 (0-50); Potassium 4.2 mmol/L (3.4-5.1); Sodium 137 mmol/L (137-145)
[2024-06-12 20:36] LABS: TSH w/ Reflex to FT4 0.78 uIU/mL (0.47-4.68)
== END ==
PROVIDERS: PCP Family Medicine; Visit Provider Family Medicine
DX: I87.1 Compression of vein (principal); R07.9 Chest pain, unspecified; F32.A Depression, unspecified; G47.33 Obstructive sleep apnea (adult) (pediatric); R53.83 Other fatigue
CPT/HCPCS: 80048; 84443; 85025

== ENCOUNTER → 2024-06-14 15:25 | Outpatient (CLI) | payer OTHER, SELFPAY ==
--- NOTE | 2024-06-14 19:40 | DI.NM.S_ITS ---
DATE OF SERVICE: 06/14/2024 PROCEDURE: Exercise treadmill stress test without imaging. ORDERING PROVIDER: Dr. Iain Cha. INDICATIONS: The patient is a 33-year-old female with atypical chest and left arm discomfort. FINDINGS: 1. The patient was able to exercise for 12 minutes 46 seconds, suggesting excellent exercise capacity with an ROBER of -31%, achieving 12.8 mets. 2. The patient had a somewhat accelerated heart rate response to exercise with a resting heart rate of 103 to 119 BPM, increasing to a maximum heart rate of 203 BPM (109% of her predicted maximum). She had a fairly normal blood pressure response with a resting blood pressure of 106/66, increasing to 132/84 at near peak exercise, although falling to 114/90 at peak exercise, yet with prompt normalization in early recovery to 140/72. 3. She had no chest discomfort or other anginal symptoms. 4. Her resting ECG showed sinus rhythm and sinus tachycardia with normal ST segments. There were no significant ST-segment shifts or arrhythmias with stress. IMPRESSION: 1. Probable normal exercise treadmill stress test for ischemia. 2. She had a moderately accelerated heart rate response and a brief decline in blood pressure at peak exercise but otherwise normal exercise hemodynamics. While a drop in blood pressure at peak exercise can be a sign of global ischemia, this seems unlikely in this patient with excellent exercise capacity and without any anginal symptoms. Clinical correlation is recommended. Nidia Abad - ROSELINE/krystle/AY doc#: [id number]/job#: [id number] dd: 06/14/2024 17:08:00 dt: 06/14/2024 19:26:00 DICTATING MD/COPIES TO: Iain Ferrell MD; Iain Cha MD COPIES MNE: CHRISTOPHER
== END ==
PROVIDERS: PCP Family Medicine; Referring Provider Family Medicine; Visit Provider Family Medicine
DX: R07.9 Chest pain, unspecified (principal)
CPT/HCPCS: 93017

== ENCOUNTER → 2024-10-16 09:28 | Outpatient (CLI) | payer OTHER, SELFPAY ==
--- NOTE | 2024-10-16 09:30 | DI.MG.S_ITS ---
BILATERAL DIGITAL DIAGNOSTIC MAMMOGRAM 3D/2D: 10/16/2024 CLINICAL: Bilateral Breast pain. Comparison is made to exams dated: 08/10/2023 mammogram and 09/05/2021 mammogram - [facility]. The breasts are extremely dense, which lowers the sensitivity of mammography (category d />75% glandular tissue). There is an oval focal asymmetry in the right breast at 12 o'clock anterior depth. There also is an oval focal asymmetry with an obscured margin in the right breast at 10 o'clock anterior depth. Additionally, there is an oval equal density focal asymmetry in the right breast at 10 o'clock middle depth. No other significant masses, calcifications, or other findings are seen in either breast. IMPRESSION: INCOMPLETE: NEED ADDITIONAL IMAGING EVALUATION The oval focal asymmetry in the right breast at 12 o'clock anterior depth resembles a cyst or a lymph node and is indeterminate. An ultrasound is recommended. The oval focal asymmetry in the right breast at 10 o'clock anterior depth resembles a cyst and is indeterminate. An ultrasound is recommended. The oval equal density focal asymmetry in the right breast at 10 o'clock middle depth resembles a cyst and is indeterminate. An ultrasound is recommended. There is no abnormality seen in the left breast to correspond with the diffuse area of clinical concern and pain, however, clinical followup is recommended. The recommended ultrasound is scheduled to immediately follow this exam. Based on Tyrer-Cuzick model (a risk assessment model), the patient's lifetime risk is 21.1% and her 10 year risk is 1.4%. If a patient has an elevated risk, a more comprehensive evaluation should be considered and/or a referral to a genetic counselor. The [employer], [employer], and NCCN Guidelines advise the consideration of Breast MRI as an adjunct to screening mammography in patients whose Lifetime risk to develop breast cancer is 20% or higher. This exam was interpreted at Station ID: [id number]. NOTE: For mammograms, a report in lay terms will be sent to the patient. Approximately 15% of breast malignancies will not be visualized mammographically. In the management of a palpable breast mass, a negative mammogram must not discourage biopsy of a clinically suspicious lesion. Electronically Signed By: Jim Riggs M.D. aty/:10/16/2024 11:10:37 copy to: ADAN STEVENS-MANSKE letter sent: Additional Imaging Needed ACR BI-RADS Category 0: Incomplete: Need Additional Imaging Evaluation
--- NOTE | 2024-10-16 09:30 | DI.US.S_ITS ---
LIMITED ULTRASOUND OF RIGHT BREAST AND AXILLA: 10/16/2024 CLINICAL: Intermittent pain in bilateral breasts. Comparison is made to exams dated: 10/16/2024 mammogram, 08/10/2023 ultrasound, 08/10/2023 mammogram, 01/19/2023 ultrasound, 01/19/2023 mammogram, and 04/14/2022 ultrasound [facility]. Color flow and real-time ultrasound of the right breast 10 o'clock, 12 o'clock, and axilla regions were performed. Gutiérrez scale images of the real-time examination were reviewed. There is a 0.7 cm x 0.3 cm x 0.6 cm wider than tall oval cyst in the right breast at 12 o'clock anterior depth 2 cm from the nipple. This oval cyst is anechoic. This correlates with mammography findings. Color flow imaging demonstrates that there is no vascularity present. There also is a 1.3 cm x 0.7 cm x 1.3 cm wider than tall oval simple cyst in the right breast at 10 o'clock middle depth 3.5 cm from the nipple. This oval simple cyst is anechoic. This correlates with mammography findings. Color flow imaging demonstrates that there is no vascularity present. Additionally, there is a 1 cm x 0.5 cm x 0.7 cm wider than tall oval cyst in the right breast at 10 o'clock middle depth 4 cm from the nipple. This oval cyst is anechoic with posterior acoustic enhancement. This correlates with mammography findings. Color flow imaging demonstrates that there is no vascularity present. IMPRESSION: BENIGN There is no sonographic evidence of malignancy. The 0.7 cm x 0.3 cm x 0.6 cm wider than tall oval cyst in the right breast at 12 o'clock anterior depth is consistent with a simple cyst and is benign. The 1.3 cm x 0.7 cm x 1.3 cm wider than tall oval simple cyst in the right breast at 10 o'clock middle depth is consistent with a simple cyst and is benign. The 1 cm x 0.5 cm x 0.7 cm wider than tall oval cyst in the right breast at 10 o'clock middle depth is consistent with a simple cyst and is benign. There is no abnormality seen in either breast to correspond with the now resolved clinical concern described as diffuse bilateral breast pain, however, recommend clinical follow up for persistent or worsening symptoms, or development of any clinically suspicious findings. Recommend initiating routine screening mammograms at age 40. Additionally, patient has an elevated lifetime risk for breast cancer of greater than 20%. Recommend consideration for screening breast MRI as an adjunct to screening mammography. Findings and recommendations were conveyed to the patient during today's evaluation. This exam was interpreted at Station ID: [id number]. Electronically Signed By: Jim Riggs M.D. aty/:10/16/2024 11:28:12 copy to: ADAN BURDICK letter sent: Clinical Evaluation ACR BI-RADS Category 2: Benign
== END ==
LOC: MAMMO 09:29
PROVIDERS: PCP Family Medicine; Referring Provider Obstetrics & Gynecology; Visit Provider Obstetrics & Gynecology
DX: R92.8 Other abnormal and inconclusive findings on diagnostic imaging of breast (principal); N60.01 Solitary cyst of right breast; N64.4 Mastodynia; R92.343 Mammographic extreme density, bilateral breasts
CPT/HCPCS: 76642; 77066; G0279

== ENCOUNTER → 2024-11-27 11:28 | Outpatient (CLI) | payer OTHER, SELFPAY ==
[2024-11-27 19:28] LABS: Free T4, Direct Thyroxine 1.16 ng/dL (0.78-2.19)
[2024-11-27 19:29] LABS: Vitamin D 25 Hydroxy (D3) 31.1 ng/mL (30.0-100.0)
[2024-11-27 20:01] LABS: Vitamin B12 768 pg/mL (239-931)
== END ==
PROVIDERS: PCP Family Medicine; Visit Provider Family Medicine
DX: R07.9 Chest pain, unspecified (principal); F32.A Depression, unspecified; R53.83 Other fatigue
CPT/HCPCS: 82306; 82607; 84439

== ENCOUNTER → 2025-04-20 09:01 | Outpatient (CLI) | payer OTHER, SELFPAY ==
--- NOTE | 2025-04-20 09:03 | DI.ECHO.S_ITS ---
[facility] : : [address] : : [place] : : [id number] : : Phone: [phone] Echocardiogram Report + + :Name: DARSHANA CARLOS Study Date: 04/20/2025 Height: 71 in : :[facility] ReadingLocation: Weight: 155 lb : : Gender: Female BSA: 1.9 m2 : :: 1990 Age: 34 yrs BP: 108/74 mmHg: :Reason For Study: PERIODIC HEART FLUTTER : :Ordering Physician: JASS, : :GRECIA Performed By: Damon Briggs : :Referring: GRECIA REGAN : + + Interpretation Summary The ejection fraction is estimated to be 60-65%. Diastolic parameters suggest probable normal left ventricular diastolic function and normal filling pressures. The right ventricle is normal in size and function. There is mild tricuspid regurgitation. Pulmonary artery pressures cannot be estimated because of the lack of a measurable TR jet velocity but the IVC suggests a CVP of around 8 mmHg. Procedure: A two-dimensional transthoracic echocardiogram with color flow and Doppler was performed. The study quality was technically good. There is no prior echocardiogram noted for this patient. The patient was in normal sinus rhythm during the exam. Left Ventricle: The left ventricle is normal in size. There is normal left ventricular wall thickness. There is no ventricular septal defect visualized. The ejection fraction is estimated to be 60-65%. There are no focal wall motion abnormalities. Diastolic parameters suggest probable normal left ventricular diastolic function and normal filling pressures. Right Ventricle: The right ventricle is normal in size and function. Atria: The left atrial size is normal. Right atrial size is normal. There is no Doppler evidence for an interatrial shunt. Mitral Valve: The mitral valve leaflets appear normal. There is no evidence of stenosis, fluttering, or prolapse. There is no mitral regurgitation noted. Aortic Valve: The aortic valve is trileaflet. The aortic valve opens well. There is no aortic valve stenosis. No aortic regurgitation is present. Tricuspid Valve: The tricuspid valve leaflets are thin and pliable. There is mild tricuspid regurgitation. Pulmonary artery pressures cannot be estimated because of the lack of a measurable TR jet velocity but the IVC suggests a CVP of around 8 mmHg. Pulmonic Valve: The pulmonic valve is not well seen, but is grossly normal. There is no pulmonic valvular regurgitation. Great Vessels: The aortic root is normal size. The ascending aorta could not be visualized. The pulmonary artery is normal size. The IVC is dilated (diameter is greater than 2.1 cm) yet it collapses greater than 50% with a sniff. This suggests a right atrial pressure of 8 mm Hg. Pericardium/ Pleura There is no pericardial effusion. There is no pleural effusion. MMode/2D Measurements & Calculations LVIDd: 5.3 cm LVOT diam: 2.1 cm LVIDs: 3.5 cm Ao root diam: 3.0 cm FS: 33.7 % Ao Arch Diam (Prox Trans): 1.3 cm EPSS: 0.72 cm IVSd: 0.71 cm LVPWd: 0.66 cm LV pugh. diameter/BSA (cm/m^2): 2.8 LV sys. diameter/BSA (cm/m^2): 1.9 LA A2 area: 19.2 cm2 RA long axis: 4.9 cm LA A4 area: 16.8 cm2 RA area: 16.2 cm2 LA length (vol): 4.8 cm RA vol: 45.9 ml LA vol: 57.4 ml RA : 24.3 ml/m2 LA vol index: 30.3 ml/m2 IVC diam: 2.2 cm RVD1 (basal): 3.4 cm RVD2 (mid): 3.1 cm TAPSE: 2.3 cm Doppler Measurements & Calculations Ao V2 max: 114.6 cm/sec LVOT Max Maldonado: 98.0 cm/sec Ao V2 mean: 78.9 cm/sec LV V1 max P.8 mmHg Ao max P.3 mmHg LV V1 VTI: 21.6 cm Ao mean P.8 mmHg JEFFREY(I,D): 3.3 cm2 Ao V2 VTI: 22.8 cm JEFFREY(V,D): 3.0 cm2 sev ratio: 0.95 JEFFREY indexed to BSA (cm^2/m^2): 1.7 MV E max maldonado: 53.0 cm/sec TR max maldonado: 247.4 cm/sec MV A max maldonado: 36.8 cm/sec TR max P.5 mmHg MV E/A: 1.4 PA V2 max: 95.4 cm/sec Med Peak E' Maldonado: 14.2 cm/sec PA V2 mean: 62.6 cm/sec E/E' med: 3.7 PA mean P.8 mmHg Lat Peak E' Maldonado: 20.4 cm/sec PA pr(Accel): 31.0 mmHg E/E' lat: 2.6 E/e' average: 3.2 MV dec time: 0.18 sec SV(LVOT): 75.1 ml Reading Physician:01:09 PM
== END ==
LOC: ECHO 09:03
PROVIDERS: PCP Family Medicine; Referring Provider Specialist/Technologist Athletic Trainer; Visit Provider Specialist/Technologist Athletic Trainer
DX: I07.1 Rheumatic tricuspid insufficiency (principal); I87.1 Compression of vein; I49.8 Other specified cardiac arrhythmias
CPT/HCPCS: 93306